=== PATIENT | female | born 1975 | race Caucasian/White ===

== ENCOUNTER 2019-11-26 17:14 | Emergency (ER) | payer OTHER, SELFPAY ==
[2019-11-26 17:19] VITALS: BP 141/64; PULSE 70; RESP 16; TEMP 37.1; O2SAT 100
--- NOTE | 2019-11-26 17:27 | ED.FEMALEGU ---
HPI - Female Genitourinary General Chief complaint: [employer] Stated complaint: Bacterial infection Time Seen by Provider: 11/26/19 17:27 Source: patient and RN notes reviewed History of Present Illness HPI Narrative: Patient is a 44-year-old female presents the urgent care with complaints of thick white odor discharge for the last 2 weeks. Patient states she has recurrent BV and has been continuously getting it every few months after having a hysterectomy due to cervical adenoma. Patient states that she has not had any urinary symptoms. States that she takes probiotic and garlic pills daily. Patient has not followed up with her [employer]ER since her hysterectomy. No other acute complaints. No acute distress noted. Patient read the plan of care. Related Data Allergies Allergy/AdvReac Type Severity Reaction Status Date / Time No Known Drug Allergies Allergy Unknown Unknown Verified 11/26/19 17:31 Review of Systems Review of Systems: Narrative: CONSTITUTIONAL: Denies fever, chills, or sweats. EYES: Denies visual changes, redness, or discharge. ENT: Denies rhinorrhea, congestion, sore throat, or otalgia. CARDIOVASCULAR: Denies chest pain, palpitations, or edema. RESPIRATORY: Denies cough or dyspnea. GASTROINTESTINAL: Denies abdominal pain, nausea, vomiting, or diarrhea. GENITOURINARY: Reports of thick white odor vaginal discharge SKIN: Denies rash or itching. MUSCULOSKELETAL: Denies back pain, joint pain, or myalgia. NEUROLOGIC: Denies headache, numbness, or weakness. All other systems reviewed are negative, except as documented in HPI. PMFSH Past Medical History Medical History (Updated 11/26/19 @ 17:40 by EDMOND Carmen) Cervical cancer Surgical History Surgical History (Updated 09/25/19 @ 10:56 by EDMOND Orta) Hx of cholecystectomy Hx of hysterectomy 2010 Social History Social History (Updated 09/25/19 @ 10:55 by EDMOND Orta) Smoking status: Never smoker Comments At the time of my signature, I reviewed and agree with the nursing past medical, surgical, social, and family history. There is no relevant family history pertinent to the patient complaint. Exam Narrative: Exam Narrative: GENERAL: This is a well-nourished, well-developed patient, in no apparent distress. HEAD: normocephalic, atraumatic. EYES: PERRL. Sclera clear/white. Vision is grossly intact. EARS: External ears normal NOSE: External nose normal with no obvious nasal discharge THROAT: Mucous membranes moist NECK: Neck supple CARDIOVASCULAR: Regular rate and rhythm without murmurs, gallops, or rubs. RESPIRATORY: Clear to auscultation. Breath sounds equal bilaterally. No wheezes, rales, or rhonchi. : Patient deferred SKIN: warm, intact with no suspicious lesions or rash, good texture and turgor. NEURO: awake, alert, and oriented to person, place and time. There were no obvious focal neurologic abnormalities. EXTREMITIES: No clubbing, cyanosis, or edema. BACK: No flank tenderness. Course Vital Signs Vital signs: Vital Signs Temperature 98.8 F 11/26/19 17:19 Pulse Rate 70 11/26/19 17:19 Respiratory Rate 16 11/26/19 17:19 Blood Pressure 141/64 H 11/26/19 17:19 Pulse Oximetry 100 11/26/19 17:19 Temperature 98.8 F 11/26/19 17:19 Pulse Rate 70 11/26/19 17:19 Respiratory Rate 16 11/26/19 17:19 Blood Pressure 141/64 H 11/26/19 17:19 Pulse Oximetry 100 11/26/19 17:19 Reviewed?patient is informed that they may have pre-hypertension or hypertension based on a blood pressure reading in the department. I recommend the patient call the primary care provider listed on their discharge instructions or a physician of their choice this week to arrange follow-up for further evaluation of possible pre-hypertension or hypertension. MDM - Female Genitourinary MDM Narrative Medical decision making narrative: Advised the patient to complete antibiotic regimen as prescribed. Make sure to eat and drink w
== END 2019-11-26 17:42 | disposition home or self-care (01) ==
PROVIDERS: Emergency Provider Nurse Practitioner Family
DX: N89.8 Other specified noninflammatory disorders of vagina (principal); Z85.41 Personal history of malignant neoplasm of cervix uteri
CPT/HCPCS: 99213; G0463

== ENCOUNTER 2021-12-08 19:08 | Emergency (ER) | payer OTHER, SELFPAY ==
[2021-12-08 19:35] VITALS: BP 116/72; PULSE 80; RESP 16; TEMP 36.6; O2SAT 100
--- NOTE | 2021-12-08 20:30 | ED.FEMALEGU ---
HPI - Female Genitourinary General Chief complaint: Urogenital-Female Stated complaint: bacterial infection Time Seen by Provider: 12/08/21 20:30 Source: patient and RN notes reviewed Mode of arrival: ambulatory Limitations: no limitations History of Present Illness HPI Narrative: 46-year-old female presents with concern for foul-smelling for discharge. She reports a history of bacterial vaginosis infections, reports the symptoms are consistent with her typical infections. Reports she has gotten infections after she has a history. She denies any abdominal pain, dysuria, urgency, frequency. Denies abnormal vaginal bleeding. Reports she gets a yeast infection after she takes antibiotics for BV. MD elicited complaint: vaginal discharge Related Data Allergies Allergy/AdvReac Type Severity Reaction Status Date / Time No Known Drug Allergies Allergy Unknown Unknown Verified 12/08/21 20:11 Review of Systems Review of Systems: CONSTITUTIONAL: Denies malaise, chills, sweats, or fever. CARDIOVASCULAR: Denies chest pain, palpitations, or edema. RESPIRATORY: Denies cough or dyspnea. GASTROINTESTINAL: Denies abdominal pain, nausea, vomiting, diarrhea GENITOURINARY: Denies dysuria, frequency, urgency, suprapubic pressure. Denies flank pain or hematuria. Reports fishy smelling vaginal discharge and irritation SKIN: Denies rash or itching. MUSCULOSKELETAL: Denies back pain or myalgia. All systems reviewed & are unremarkable except as noted in HPI and below PMFSH Past Medical History Medical History (Updated 12/08/21 @ 20:34 by Christine Laird NP) Cervical cancer Surgical History Surgical History (Updated 09/25/19 @ 10:56 by EDMOND Orta) Hx of cholecystectomy Hx of hysterectomy 2010 Social History Social History (Updated 09/25/19 @ 10:55 by EDMOND Orta) Smoking status: Never smoker Comments At time of signature, agree with nursing past medical, surgical, social and family history. There is no relevant family history pertinent to the presenting complaint Exam Narrative: GENERAL: Well-appearing, well-nourished, and in no acute distress. HEAD: Normocephalic. EYES: PERRLA, conjunctivae clear. NECK: Supple. No lymphadenopathy CHEST: Clear to auscultation. No respiratory distress. HEART: Regular rate and rhythm. SKIN: Warm, dry, no rash. NEURO: Alert and oriented x3. PSYCH: Normal mood and affect Patient refused pelvic exam Course Course Emergency Course: Patient is aware of diagnosis, understands and agrees to treatment plan. Anticipatory guidance given. Patient agrees to follow-up as directed and is aware of reasons to seek care at the emergency department. Portions of this record may have been created with voice recognition software Level of Care: Express Care Visit Vital Signs Vital signs: Vital Signs Temperature 97.9 F 12/08/21 19:35 Pulse Rate 80 12/08/21 19:35 Respiratory Rate 16 12/08/21 19:35 Blood Pressure 116/72 12/08/21 19:35 Pulse Oximetry 100 12/08/21 19:35 Temperature 97.9 F 12/08/21 19:35 Pulse Rate 80 12/08/21 19:35 Respiratory Rate 16 12/08/21 19:35 Blood Pressure 116/72 12/08/21 19:35 Pulse Oximetry 100 12/08/21 19:35 Reviewed. MDM - Female Genitourinary MDM Narrative Medical decision making narrative: Exam findings show no acute concerns or changes; patient is non-toxic appearing and is in no distress. Patient is appropriate for outpatient treatment and follow-up. Differential Diagnosis Differential diagnosis: Likely urinary tract infection and cystitis Critical Care Time Critical Care Time Critical Care Time: No Discharge Plan Discharge Clinical Impression: Bacterial vaginosis Patient Disposition: Home, Self-Care Condition: Stable Instructions: Antibiotic Form, Bacterial Vaginosis (ED) Additional Instructions: 1) Please follow-up with your primary care doctor if you have any new concerns or symptoms. 2) If yo
== END 2021-12-08 20:36 | disposition home or self-care (01) ==
PROVIDERS: Emergency Provider Nurse Practitioner
DX: N76.0 Acute vaginitis (principal); Z85.41 Personal history of malignant neoplasm of cervix uteri
CPT/HCPCS: 99213; G0463